=== PATIENT | male | born 1940 | race Caucasian/White ===

== ENCOUNTER 2016-08-07 12:27 | Emergency (ER) | payer MEDICARE ==
[~2016-08-07] VITALS: Ht 180.3 cm; Wt 103.9 kg
--- OUTSIDE RECORDS SUMMARY | 2016-08-07 12:33 | XMS REPORT ---
Author Author Bernadine Nicole Organization [employer] Address Unknown Phone Unavailable Care Team Providers Care Press Setup Operator Name Role Phone Bernadine Nicole CP Unavailable Allergies, Adverse Reactions, Alerts Substance Reaction Event Type Lipitor Dizziness, fatigue Drug Allergy Problems Problem Type Condition Code Onset Dates Condition Status Assessment Dyslipidemia E78.5 Active Assessment Bilateral lower extremity edema R60.0 Active Problem Hypertension 401.9 Active Problem Dyslipidemia 272.4 Active Problem Dyslipidemia E78.5 Active Problem Dyspnea on exertion 786.09 Active Assessment Hypertension I10 Active Problem Edema, Lower Extremity Edema 782.3 Active Problem Fatigue 780.79 Active Medications Medication Code System Code Instructions Start Date End Date Status Dosage Lasix [facility] [address]-79 20 MG Orally Once a day Dec 27, 2014 1 tablet Lovastatin [facility] [address]-01 60 mg Orally Once a day 1 tablet with a meal Vitamin D [facility] [address]-62 2000 UN[address] Orally not defined Nexium [facility] [address]-87 20 MG Orally Once a day 1 [place] [address]-54 50 MG Orally not defined Magnesium-Zinc NDC 0 Orally not defined multivitamin NDC 0 po qd not [place] [address]-50 50 MG Orally every 6 hrs 1 tablet as [place] [address]-56 Orally Once a [place] [address]-94 Orally [place] [address] Orally not defined Procedures Procedure Coding System Code Date Office Visit, Est Pt., Level 4 CPT-4 41657 Mar 27, 2015 Vital Signs Date/Time: Mar 27, 2015 BMI 30.96 Index Weight 222 lbs Height 5 ft 11 in in Cardiac Monitoring Heart Rate 102 /min Oximetry 95 % Blood Pressure Diastolic 90 mm Hg Blood Pressure Systolic 130 mm Hg Results No Known Results Summary Purpose [employer] Submission
[2016-08-07] MEDS ORDERED: NEBI5TAB8 GT (12:49)
[2016-08-07] MEDS ORDERED: FRSM20T PO (12:52)
[2016-08-07] MEDS ORDERED: ATOR40TA2 PO (12:54)
--- NOTE | 2016-08-07 13:21 | Diagnostic Imaging Report ---
INDICATION: Fell and hit nose. FINDINGS: 3 views show a comminuted fracture of the nasal bone with minimal depression. The nasal septum is deviated moderately to the left. The maxillary sinuses are well-aerated and clear. IMPRESSION: Comminuted and minimally depressed fracture of the nasal bone. Dictated by: Dictated on workstation # [id number]
[2016-08-07 13:37] VITALS: BP 157/89
== END 2016-08-07 13:35 | disposition home or self-care (01) ==
LOC: EDUNIT# 12:27 → ED 12:29
DX: S02.2XXA Fracture of nasal bones, initial encounter for closed fracture (principal); W01.198A Fall on same level from slipping, tripping and stumbling with subsequent striking against other object, initial encounter; Y93.89 Activity, other specified; Y92.524 Gas station as the place of occurrence of the external cause
CPT/HCPCS: 70160; 99282; 99283